=== PATIENT | male | born 1955 | race Caucasian/White ===

== ENCOUNTER 2024-07-23 10:31 | Emergency (ER) | payer MEDICARE ==
[2024-07-23] MEDS: Lidocaine 1% 5 ML VIAL INJECT ONE (11:18)
[2024-07-23] MEDS: cefTRIAXone 1 GM Vial IM ONE (11:18)
[2024-07-23] MEDS: cefTRIAXone 1 GM Vial ONE (12:04)
== END 2024-07-23 11:28 | disposition home or self-care (01) ==
LOC: LB.ED 10:31
DX: L03.011 Cellulitis of right finger (principal); Z79.899 Other long term (current) drug therapy
CPT/HCPCS: 96372; 99283; J0696